=== PATIENT | female | born 1985 | race African-American/Black ===

== ENCOUNTER 2018-09-25 09:25 | Emergency (ER) | payer SELFPAY ==
[~2018-09-25] VITALS: Ht 154.9 cm; Wt 75.3 kg
[~2018-09-25 09:25] MED LIST: CYCLOBENZAPRINE10 MG ORAL; IBUPROFEN600 MG ORAL; POLYTRIM OP SOL10 ML OPHTHALM
[2018-09-25] MEDS ORDERED: PRENAISSANCE C1 EACH PO (09:37)
[2018-09-25] MEDS ORDERED: ASPIRIN81 MG ORAL (09:37)
[2018-09-25 09:45] VITALS: BP 123/80
[2018-09-25] MEDS ORDERED: Acetaminophen 500mg (ES) tab ORAL ONE (10:00)
[2018-09-25 10:13] LABS: BASOPHILS % (AUTO) 1.4 % (0.0-2.0); EOSINOPHILS % (AUTO) 1.4 % (0.0-3.0); HEMATOCRIT 32.9 % (37.0-47.0); HEMOGLOBIN 11.7 G/DL (12.0-16.0); LYMPHOCYTES % (AUTO) 9.6 % (20.0-45.0); MEAN CORPUSCULAR VOLUME 90 FL (80-99); MONOCYTES % (AUTO) 10.7 % (1.0-10.0); PLATELET COUNT 220 K/UL (150-450); RED BLOOD COUNT 3.68 M/UL (4.20-5.40); RED CELL DISTRIBUTION WIDTH 11.8 % (11.6-14.8)
--- NOTE | 2018-09-25 10:19 | Emergency Room Report ---
History of Present Illness General Chief Complaint: Chest Pain Source: Patient Present Illness HPI 33-year-old female presents ED for evaluation. Complaining of chest pain and abdominal pain since yesterday. Chest pain is sharp, 7 out of 10, midsternal, nonradiating. Worse with deep breaths and laying down. Denies cough. Denies asthma. Also complaining of some lower right abdominal cramping pain. 5 out of 10, nonradiating. Denies spotting. States she is approximately 18 weeks . Is a surrogate. Currently receiving care. No other aggravating relieving factors. Denies any other associated symptoms Allergies: Coded Allergies: No Known Allergies (Unverified , 01/23/13) Patient History Past Medical History: none Past Surgical History: none Pertinent Family History: none Social History: Denies: smoking, alcohol use, drug use Now: Yes - 18 weeks : 4 Para: 3 Immunizations: UTD Reviewed Nursing Documentation: PMH: Agreed; PSxH: Agreed Nursing Documentation-PMH Past Medical History: No Stated History Review of Systems All Other Systems: negative except mentioned in HPI Physical Exam Vital Signs Date Time Temp Pulse Resp B/P (MAP) Pulse Ox O2 Delivery O2 Flow Rate FiO2 09/25/18 09:31 98.8 114 19 117/70 99 Room Air Sp02 EP Interpretation: reviewed, normal General Appearance: no apparent distress, alert, GCS 15, non-toxic Head: normocephalic, atraumatic Eyes: bilateral eye normal inspection, bilateral eye PERRL ENT: hearing grossly normal, normal pharynx, no angioedema, normal voice Neck: full range of motion, supple/symm/no masses Respiratory: lungs clear, normal breath sounds, speaking full sentences, other - reproducible anterior chest wall pain Cardiovascular #1: regular rate, rhythm, no edema Cardiovascular #2: 2+ carotid (R), 2+ carotid (L), 2+ radial (R), 2+ radial (L) , 2+ dorsalis pedis (R), 2+ dorsalis pedis (L) Gastrointestinal: normal bowel sounds, soft, non-distended, no guarding, no rebound, tenderness Rectal: deferred Genitourinary: normal inspection, no CVA tenderness Musculoskeletal: back normal, gait/station normal, normal range of motion, non- tender Neurologic: alert, oriented x3, responsive, motor strength/tone normal, sensory intact, speech normal Psychiatric: judgement/insight normal, memory normal, mood/affect normal, no suicidal/homicidal ideation Reflexes: 3+ bicep (R), 3+ bicep (L), 3+ tricep (R), 3+ tricep (L), 3+ knee (R) , 3+ knee (L) Skin: normal color, no rash, warm/dry, well hydrated Lymphatic: no adenopathy Medical Decision Making Diagnostic Impression: Primary Impression: Chest wall pain Additional Impression: Qualified Codes: Z3A.18 - 18 weeks gestation of ER Course Hospital Course 33-year-old female presents to ED complaining of lower abdominal pain . + . chest pain Differential diagnoses include: gastrits, gastroenterits, ectopic , ovarian torsion/cyst, UTI Clinical course Patient placed on stretcher in ED. After initial history and physical I ordered labs, IV fluids and tylenol, CXR and pelvic ultrasound. Labs-no leukocytosis, electrolytes okay, beta hCG +, trop negative EKG - NSR, no acute ischemic changes interpreted by me CXR - no acute process OB ultrasound-IUP detected with heart rate, pelvic congestion, partial placenta previa I discussed findings with the patient's [employer]CR[employer]MENT OPERATOR Dr Dickerson, patient is currently a surrogate. There was initially concern for potential PE. D-dimer is not reliable. Patient complaining of chest pain with tachycardia. Chest pain did feel reproducible however. Patient was given Tylenol. On reassessment pain improved. No longer tachycardic. My suspicion for PE is low. Discussed with CONCRETE [employer]ACEMENT EQUIPMENT OPERATOR agrees that no further workup is required. He will follow-up with patient in his office. Discussed findings with patient. Reassurance given. We'll discharged to home Diagnosis - chest wall pain, Stable and discharged to home with Rx tylenol. Followup with PMD/CONCRETE PLACEMENT EQUIPMENT OPERATOR. Return to ED if symptoms recur or worsen Labs Test 09/25/18 10:00 09/25/18 12:04 White Blood Count 9.0 K/UL (4.8-10.8) Red Blood Count 3.68 M/UL (4.20-5.40) Hemoglobin 11.7 G/DL (12.0-16.0) Hematocrit 32.9 % (37.0-47.0) Mean Corpuscular Volume 90 FL (80-99) Mean Corpuscular Hemoglobin 31.8 PG (27.0-31.0) Mean Corpuscular Hemoglobin Concent 35.5 G/DL (32.0-36.0) Red Cell Distribution Width 11.8 % (11.6-14.8) Platelet Count 220 K/UL (150-450) Mean Platelet Volume 6.5 FL (6.5-10.1) Neutrophils (%) (Auto) 77.0 % (45.0-75.0) Lymphocytes (%) (Auto) 9.6 % (20.0-45.0) Monocytes (%) (Auto) 10.7 % (1.0-10.0) Eosinophils (%) (Auto) 1.4 % (0.0-3.0) Basophils (%) (Auto) 1.4 % (0.0-2.0) Prothrombin Time 10.5 SEC (9.30-11.50) Prothromb Time International Ratio 1.0 (0.9-1.1) Activated Partial Thromboplast Time 23 SEC (23-33) Sodium Level 135 MMOL/L (136-145) Potassium Level 4.2 MMOL/L (3.5-5.1) Chloride Level 104 MMOL/L (98-107) Carbon Dioxide Level 22 MMOL/L (21-32) Anion Gap 9 mmol/L (5-15) Blood Urea Nitrogen 4 mg/dL (7-18) Creatinine 0.6 MG/DL (0.55-1.30) Estimat Glomerular Filtration Rate > 60 mL/min (>60) Glucose Level 85 MG/DL (74-106) Calcium Level 8.3 MG/DL (8.5-10.1) Total Bilirubin 0.4 MG/DL (0.2-1.0) Aspartate Amino Transf (AST/SGOT) 37 U/L (15-37) Alanine Aminotransferase (ALT/SGPT) 22 U/L (12-78) Alkaline Phosphatase 63 U/L (46-116) Troponin I 0.000 ng/mL (0.000-0.056) Total Protein 7.1 G/DL (6.4-8.2) Albumin 2.4 G/DL (3.4-5.0) Globulin 4.7 g/dL Albumin/Globulin Ratio 0.5 (1.0-2.7) Lipase 84 U/L (73-393) Human Chorionic Gonadotropin, Quant 75200 mIU/mL (1-6) Urine Color Pale yellow Urine Appearance Clear Urine pH 7 (4.5-8.0) Urine Specific [place] 1.010 (1.005-1.035) Urine Protein Negative (NEGATIVE) Urine Glucose (UA) Negative (NEGATIVE) Urine Ketones 1+ (NEGATIVE) Urine Blood Negative (NEGATIVE) Urine Nitrite Negative (NEGATIVE) Urine Bilirubin Negative (NEGATIVE) Urine Urobilinogen 1 MG/DL (0.0-1.0) Urine Leukocyte Esterase Negative (NEGATIVE) Urine HCG, Qualitative Positive (NEGATIVE) EKG Diagnostic Results Rate: tachycardiac Rhythm: NSR ST Segments: no acute changes Rhythm Strip Diag. Results EP Interpretation: yes Rhythm: NSR, no PVC's, no ectopy Chest X-Ray Diagnostic Results Chest X-Ray Diagnostic Results : Chest X-Ray Ordered: Yes # of Views/Limited/Complete: 1 View Indication: Chest Pain EP Interpretation: Yes Interpretation: no consolidation, no effusion, no pneumothorax, no acute cardiopulmonary disease Impression: No acute disease Electronically Signed by: Electronically signed by Paulo Kapoor MD CT/MRI/US Diagnostic Results CT/MRI/US Diagnostic Results : Imaging Test Ordered: OB US Impression Findings consistent with partial or marginal placenta previa. Recommend further monitoring of this as fetus enlarges Single live intrauterine , estimated gestational age 18 weeks 5 days by average ultrasound measurements Bilateral adnexal venous varicosities. Possibly due to gravid state, but possibility of bilateral ovarian venous insufficiency should also be considered. Correlate with any clinical findings suggestive of pelvic congestion syndrome Last Vital Signs Date Time Temp Pulse Resp B/P (MAP) Pulse Ox O2 Delivery O2 Flow Rate FiO2 09/25/18 09:45 98.7 117 18 123/80 100 Room Air Status: improved Disposition: HOME, SELF-CARE Condition: Stable Scripts Acetaminophen* (TYLENOL EXTRA STRENGTH*) 500 Mg Tablet 500 MG ORAL Q8H PRN for Prn Headache/Temp > 101, #30 TAB 0 Refills Prov: Paulo Kapoor MD 09/25/18 Referrals: NOT CHOSEN IPA/,REFERRING (PCP) Paulo Kapoor MD Sep 25, 2018 10:19
[2018-09-25 10:34] LABS: ANION GAP 9 mmol/L (5-15); BLOOD UREA NITROGEN 4 mg/dL (7-18); CALCIUM 8.3 MG/DL (8.5-10.1); CARBON DIOXIDE 22 MMOL/L (21-32); CHLORIDE 104 MMOL/L (98-107); CREATININE 0.6 MG/DL (0.55-1.30); POTASSIUM 4.2 MMOL/L (3.5-5.1); SODIUM 135 MMOL/L (136-145)
[2018-09-25 10:38] LABS: ALANINE AMINOTRANSFERASE 22 U/L (12-78); ALBUMIN 2.4 G/DL (3.4-5.0); ALBUMIN/GLOBULIN RATIO 0.5 (1.0-2.7); ALKALINE PHOSPHATASE 63 U/L (46-116); ASPARTATE AMINO TRANSFERASE 37 U/L (15-37); BILIRUBIN,TOTAL 0.4 MG/DL (0.2-1.0)
[2018-09-25 11:51] VITALS: BP 101/56
--- NOTE | 2018-09-25 12:46 | Diagnostic Imaging Report ---
Indication: Right-sided abdominal pain, patient Technique: Transabdominal and transvaginal images Comparison: 01/23/2013 Findings: There is a single live intrauterine . This demonstrates motion and positive heart activity, heart rate 161 bpm. The cervix is closed, endocervical canal measuring 4.3 cm. A rounded echogenic structure covers the internal cervical os, probably represents the edge of the placenta. The placenta is lateral fundal. Amniotic fluid index is 15.6 cm, within normal limits. measurements as follows: Biparietal diameter 30 mm, 18 weeks 5 days; head circumference one 59 mm, 18 weeks 5 days; abdominal circumference one 31 mm, 18 weeks 5 days; femur length 27 mm, 20 weeks 3 days. Estimated gestational age by average of ultrasound measurements is 18 weeks 5 days. Estimated gestational age by dates 18 weeks zero days. Estimated date of delivery 02/21/2019 Only limited assessment of the anatomy, due to emergent nature of the exam. Four-chamber heart, stomach, insertion of three-vessel cord, normal spine are all demonstrated. Neither ovary could be demonstrated. Venous varicosities are seen in the bilateral ovaries. Impression: Findings consistent with partial or marginal placenta previa. Recommend further monitoring of this as fetus enlarges Single live intrauterine , estimated gestational age 18 weeks 5 days by average ultrasound measurements Bilateral adnexal venous varicosities. Possibly due to gravid state, but possibility of bilateral ovarian venous insufficiency should also be considered. Correlate with any clinical findings suggestive of pelvic congestion syndrome Findings discussed by phone with Dr. Kapoor in the emergency room at the time of interpretation
--- NOTE | 2018-09-25 12:51 | Diagnostic Imaging Report ---
Indication: Shortness of breath Technique: One view of the chest Comparison: 02/27/2016 Findings: Inspiration is suboptimal with crowding of the central bronchovascular markings. No definite acute infiltrates, effusions, or congestion. Heart size is upper limits of normal. Impression: No definite acute process
[2018-09-25] MEDS ORDERED: TYLENOL EXTRA500 MG ORAL (12:56)
[2018-09-25 12:57] LABS: APPEARANCE,URINE CLEAR; BILIRUBIN, URINE NEGATIVE (NEGATIVE); COLOR,URINE PALE YELLOW; GLUCOSE, URINE (UA) NEGATIVE (NEGATIVE); KETONES,URINE 1+ (NEGATIVE); LEUKOCYTE ESTERASE ,URINE NEGATIVE (NEGATIVE); NITRITE,URINE NEGATIVE (NEGATIVE); PH,URINE 7 (4.5-8.0); PROTEIN,URINE NEGATIVE (NEGATIVE); UROBILINOGEN,URINE 1 MG/DL (0.0-1.0)
[2018-09-25 13:09] VITALS: BP 94/53
== END 2018-09-25 13:09 | disposition home or self-care (01) ==
LOC: EMR 09:50
DX: O26.892 Other specified pregnancy related conditions, second trimester (principal); Z3A.18 18 weeks gestation of pregnancy; R07.89 Other chest pain; R10.30 Lower abdominal pain, unspecified
CPT/HCPCS: 36415; 71045; 76805; 80053; 81003; 81025; 83690; 84484; 84702; 85025; 85610; 85730; 86850; 86900; 86901; 96360; 99284